=== PATIENT | female | born 1965 | race Hispanic/Latino ===

== ENCOUNTER 2023-11-26 16:03 | Inpatient (IN) | payer OTHER ==
[2023-11-26 17:43] LABS: #Eosinphils 0.4 thou/uL (0.0-0.7); #Monocytes 0.6 thou/uL (0.11-0.59); #Neutrophils 5.7 thou/uL (1.40-6.50); %Basophils 0.2 % (0.0-1.0); %Eosinophils 4.1 % (0.0-10.0); %Lymphocytes 24.7 % (21.0-51.0); %Monocytes 6.2 % (0.0-10.0); %Neutrophils 64.6 % (42.0-75.0); Hematocrit 27.8 % (36.0-47.0); Hemoglobin 9.3 g/dL (12.0-16.0); Mean Corpuscular HGB CONC 33.5 g/dL (32.0-36.0); Mean Corpuscular Hemoglobin 27.4 pg (27.0-31.0); Mean Corpuscular Volume 81.8 fl (78.0-98.0); Mean Platelet Volume 10.2 fL (7.4-10.4); Platelet Count 199 10x3/uL (130-400); RBC Distribution Width 14.3 % (11.5-14.5); White Blood Cell (WBC) Count 8.9 10x3/uL (4.8-10.8)
[2023-11-26] MEDS ORDERED: Furosemide 40 MG (4 mL) VIAL ONE (17:51)
[2023-11-26 18:06] LABS: ALT (SGPT) 17 U/L (8-55); AST (SGOT) 15 U/L (5-34); Albumin 3.3 g/dL (3.5-5.0); Alkaline Phosphatase 100 U/L (40-110); Anion Gap 11 mmol/L (10-20); BUN (Urea Nitrogen) 12 mg/dL (9.8-20.1); Bilirubin, Total 0.7 mg/dL (0.2-1.2); Calc. Creatinine Clearance 0 mL/min (70-130); Calcium 8.4 mg/dL (7.8-10.44); Carbon Dioxide 27 mmol/L (22-29); Chloride 105 mmol/L (98-107); Estimated GFR 59; Globulin 2.7 g/dL (2.4-3.5); Glucose 151 mg/dL (70-105); Magnesium 1.4 mg/dL (1.6-2.6); Sodium 139 mmol/L (136-145)
[2023-11-26 18:13] LABS: Critical Call Chem Troponin I NUR.JH15@1813; Troponin I 0.267 ng/mL (< 0.028)
[2023-11-26] MEDS ORDERED: Magnesium 2 GM/50 ML BAG (IN WATER) ONE (18:29)
[2023-11-26] MEDS ORDERED: niCARdipine 25 MG/10 ML SDV ONE (18:45)
[2023-11-26] MEDS ORDERED: Cephalexin 250 MG CAP ONE (18:45)
[2023-11-26] MEDS ORDERED: Acetaminophen 325 MG TAB PO PRN (18:51)
[2023-11-26] MEDS ORDERED: Calcium Carbonate 500 MG ChewTAB PO PRN (18:51)
[2023-11-26] MEDS ORDERED: Senokot S 8.6-50 MG TAB PO PRN (18:51)
[2023-11-26] MEDS ORDERED: Enoxaparin 80 MG (0.8 mL) SYRINGE ONE (18:54)
[2023-11-26] MEDS ORDERED: Aspirin Chewable 81 MG TAB ONE (18:56)
[2023-11-26] MEDS ORDERED: Nitroglycerin 2% Ointment 1 INCH/1 GM Packet ONE ×2 (23:41→23:43)
[2023-11-26] MEDS ORDERED: Enoxaparin 100 MG (1 mL) SYRINGE ONE (23:42)
[2023-11-26] MEDS: Enoxaparin 100 MG (1 mL) SYRINGE SC SCH (23:48)
[2023-11-26] MEDS: Nitroglycerin 2% Ointment 1 INCH/1 GM Packet TOP SCH (23:48)
[2023-11-27] MEDS ORDERED: niCARdipine 25 MG/10 ML SDV ONE (00:18)
[2023-11-27] MEDS: niCARdipine 25 MG in Sodium Chloride 0.9% 250 ML 250 ML IVPB SCH (00:28)
[2023-11-27] MEDS ORDERED: cefTRIAXone (ROCEPHIN) 1 GM VIAL ONE (03:49)
[2023-11-27] MEDS ORDERED: Sodium Chloride 0.9% 100 ML ONE (03:49)
[2023-11-27 04:13] LABS: #Eosinphils 0.5 thou/uL (0.0-0.7); #Monocytes 0.5 thou/uL (0.11-0.59); #Neutrophils 4.8 thou/uL (1.40-6.50); %Basophils 0.3 % (0.0-1.0); %Eosinophils 6.1 % (0.0-10.0); %Lymphocytes 33.3 % (21.0-51.0); %Monocytes 5.6 % (0.0-10.0); %Neutrophils 54.5 % (42.0-75.0); Hematocrit 25.6 % (36.0-47.0); Hemoglobin 8.4 g/dL (12.0-16.0); Mean Corpuscular HGB CONC 32.8 g/dL (32.0-36.0); Mean Corpuscular Hemoglobin 27.5 pg (27.0-31.0); Mean Corpuscular Volume 83.7 fl (78.0-98.0); Mean Platelet Volume 11.3 fL (7.4-10.4); Platelet Count 203 10x3/uL (130-400); RBC Distribution Width 14.4 % (11.5-14.5); Red Blood Cell (RBC) Count 3.06 mill/uL (4.20-5.40); White Blood Cell (WBC) Count 8.9 10x3/uL (4.8-10.8)
[2023-11-27] MEDS: cefTRIAXone\\ROCEPHIN 1 GM in Sodium Chloride 0.9% 100 ML IVPB SCH (04:22)
[2023-11-27 04:38] LABS: ALT (SGPT) 14 U/L (8-55); AST (SGOT) 14 U/L (5-34); Albumin 2.8 g/dL (3.5-5.0); Alkaline Phosphatase 89 U/L (40-110); Anion Gap 9 mmol/L (10-20); BUN (Urea Nitrogen) 12 mg/dL (9.8-20.1); Bilirubin, Total 0.3 mg/dL (0.2-1.2); Calc. Creatinine Clearance 79 mL/min (70-130); Calcium 8.3 mg/dL (7.8-10.44); Carbon Dioxide 27 mmol/L (22-29); Chloride 106 mmol/L (98-107); Estimated GFR 55; Globulin 2.5 g/dL (2.4-3.5); Glucose 142 mg/dL (70-105); Magnesium 1.9 mg/dL (1.6-2.6); Potassium 3.4 mmol/L (3.5-5.1); Protein, Total 5.3 g/dL (6.0-8.3); Sodium 139 mmol/L (136-145)
[2023-11-27 04:41] LABS: Troponin I 0.124 ng/mL (< 0.028)
[2023-11-27] MEDS ORDERED: cefTRIAXone\\ROCEPHIN 1 GM in Sodium Chloride 0.9% 100 ML IVPB SCH (06:00)
[2023-11-27 07:17] LABS: Troponin I 0.103 ng/mL (< 0.028)
[2023-11-27] MEDS ORDERED: Potassium Chloride 20 MEQ TAB ONE (09:39)
[2023-11-27] MEDS ORDERED: Clopidogrel Bisulfate 75 MG TAB ONE (09:39)
[2023-11-27] MEDS ORDERED: Losartan 25 MG TAB ONE (09:40)
[2023-11-27] MEDS ORDERED: DULoxetine 60 MG CAP ONE (09:40)
[2023-11-27] MEDS ORDERED: Atorvastatin Calcium 40 MG TAB ONE (09:40)
[2023-11-27] MEDS ORDERED: Nitroglycerin 2% Ointment 1 INCH/1 GM Packet ONE (09:40)
[2023-11-27] MEDS ORDERED: Aspirin Chewable 81 MG TAB ONE (09:41)
[2023-11-27] MEDS ORDERED: Enoxaparin 100 MG (1 mL) SYRINGE ONE (09:41)
[2023-11-27] MEDS: Aspirin Chewable 81 MG TAB PO SCH (10:07)
[2023-11-27] MEDS: Potassium Chloride 20 MEQ TAB PO SCH (10:07)
[2023-11-27] MEDS: Losartan 25 MG TAB PO SCH (10:08)
[2023-11-27] MEDS: Clopidogrel Bisulfate 75 MG TAB PO SCH (10:09)
[2023-11-27] MEDS: Atorvastatin Calcium 40 MG TAB PO SCH (10:09)
[2023-11-27] MEDS: DULoxetine 60 MG CAP PO SCH (10:10)
[2023-11-27] MEDS: Enoxaparin 100 MG (1 mL) SYRINGE SC SCH (10:15)
[2023-11-27] MEDS: Amitriptyline HCl 10 MG TAB PO SCH (10:46)
[2023-11-27] MEDS: NIFEdipine XL 90 MG ER.TAB PO SCH (10:46)
[2023-11-27] MEDS ORDERED: hydrALAZINE 25 MG TAB ONE (13:20)
[2023-11-27] MEDS: hydrALAZINE 25 MG TAB PO SCH ×2 (13:23→20:58)
[2023-11-27 14:30] VITALS: BMI 38.7
[2023-11-28 05:28] LABS: #Basophils Less than 0.0 thou/uL (0.0-0.2); #Eosinphils 0.4 thou/uL (0.0-0.7); #Monocytes 0.5 thou/uL (0.11-0.59); #Neutrophils 4.8 thou/uL (1.40-6.50); %Basophils 0.2 % (0.0-1.0); %Eosinophils 4.4 % (0.0-10.0); %Lymphocytes 30.9 % (21.0-51.0); %Monocytes 6.3 % (0.0-10.0); Hematocrit 25.1 % (36.0-47.0); Hemoglobin 8.3 g/dL (12.0-16.0); Mean Corpuscular HGB CONC 33.1 g/dL (32.0-36.0); Mean Corpuscular Hemoglobin 27.6 pg (27.0-31.0); Mean Corpuscular Volume 83.4 fl (78.0-98.0); Mean Platelet Volume 11.5 fL (7.4-10.4); Platelet Count 207 10x3/uL (130-400); RBC Distribution Width 14.5 % (11.5-14.5); Red Blood Cell (RBC) Count 3.01 mill/uL (4.20-5.40); White Blood Cell (WBC) Count 8.2 10x3/uL (4.8-10.8)
[2023-11-28 05:29] LABS: Anion Gap 11 mmol/L (10-20); BUN (Urea Nitrogen) 15 mg/dL (9.8-20.1); Calc. Creatinine Clearance 70 mL/min (70-130); Calcium 8.5 mg/dL (7.8-10.44); Carbon Dioxide 27 mmol/L (22-29); Chloride 106 mmol/L (98-107); Estimated GFR 48; Glucose 146 mg/dL (70-105); Potassium 3.7 mmol/L (3.5-5.1); Sodium 140 mmol/L (136-145)
[2023-11-28] MEDS: Enoxaparin 40 MG (0.4 mL) SYRINGE SC SCH (08:54)
[2023-11-29 04:53] LABS: #Basophils Less than 0.03 10x3/uL (0.0-0.2); %Basophils 0.3 % (0.0-1.0); %Lymphocytes 28.2 % (21.0-51.0); %Monocytes 6.9 % (0.0-10.0); %Neutrophils 60.4 % (42.0-75.0); Hematocrit 26.5 % (36.0-47.0); Hemoglobin 8.7 g/dL (12.0-16.0); Mean Corpuscular HGB CONC 32.8 g/dL (32.0-36.0); Mean Corpuscular Hemoglobin 27.6 pg (27.0-31.0); Mean Corpuscular Volume 84.1 fL (78.0-98.0); Mean Platelet Volume 10.5 fL (7.4-10.4); Platelet Count 178 10x3/uL (130-400); RBC Distribution Width 14.4 % (11.5-14.5); Red Blood Cell (RBC) Count 3.15 mill/uL (4.20-5.40)
[2023-11-29 05:36] LABS: Albumin 2.9 g/dL (3.5-5.0); Anion Gap 11 mmol/L (10-20); BUN (Urea Nitrogen) 16 mg/dL (9.8-20.1); Calc. Creatinine Clearance 73 mL/min (70-130); Calcium 8.7 mg/dL (7.8-10.44); Carbon Dioxide 25 mmol/L (22-29); Chloride 107 mmol/L (98-107); Estimated GFR 51; Glucose 144 mg/dL (70-105); Phosphorus 3.5 mg/dL (2.3-4.7); Potassium 3.8 mmol/L (3.5-5.1); Sodium 139 mmol/L (136-145)
[2023-11-29] MEDS: hydrALAZINE 25 MG TAB PO SCH (08:34)
[2023-11-29 11:55] VITALS: BP 142/77; TEMP 98
== END 2023-11-29 15:06 | DRG 281 ==
LOC: ERS 16:03 → SUATTDRO 16:03 → EEVIPCON 16:03 → ERHOLD 18:52 → 2NO 11-27 13:49 → SURG B 11-28 13:42 → 2NO 11-28 14:08 → SURG B 11-28 15:14
PROVIDERS: ADMIT Internal Medicine; ATTEND Internal Medicine
DX: I16.1 Hypertensive emergency (principal); I21.A1 Myocardial infarction type 2; N39.0 Urinary tract infection, site not specified; E78.5 Hyperlipidemia, unspecified; I12.9 Hypertensive chronic kidney disease with stage 1 through stage 4 chronic kidney disease, or unspecified chronic kidney disease; N18.30 Chronic kidney disease, stage 3 unspecified; B96.20 Unspecified Escherichia coli [E. coli] as the cause of diseases classified elsewhere; I25.10 Atherosclerotic heart disease of native coronary artery without angina pectoris; D63.1 Anemia in chronic kidney disease; E11.22 Type 2 diabetes mellitus with diabetic chronic kidney disease; Z79.82 Long term (current) use of aspirin; Z79.02 Long term (current) use of antithrombotics/antiplatelets; Z79.4 Long term (current) use of insulin; Z79.899 Other long term (current) drug therapy; E11.9 Type 2 diabetes mellitus without complications; G89.29 Other chronic pain; N28.9 Disorder of kidney and ureter, unspecified
CPT/HCPCS: 36415; 71045; 80048; 80053; 80069; 83735; 83880; 84484; 85025; 93005; 93306; 94760; J0696; J1650; J1940; J3475; J3490; J7050